=== PATIENT | male | born 1950 | race Caucasian/White ===

== ENCOUNTER 2023-05-04 07:04 | Day surgery (SDC) | payer OTHER, SELFPAY ==
--- NOTE | 2023-05-04 07:11 | HP.PCM_ITS ---
History and Physical Date of Admission: 05/04/23 Allergies shellfish derived Allergy (Intermediate, Verified 04/24/23 09:50) Rashtiotropium [From Spiriva with HandiHaler] Allergy (Intermediate, Verified 04/24/23 09:50) RashIodinated Contrast Media Allergy (Verified 04/24/23 09:50) RashSulfa (Sulfonamide Antibiotics) Allergy (Verified 04/24/23 09:50) Rashatorvastatin [From Lipitor] Adverse Reaction (Verified 04/24/23 09:50) Othercarvedilol Adverse Reaction (Verified 04/24/23 09:50) Othercerivastatin [From Baycol] Adverse Reaction (Verified 04/24/23 09:50) Other Medications albuterol sulfate 90 mcg/actuation breath activated powder inhaler 2 inh inhalation Q6H PRN 09/25/22 [History Confirmed 04/24/23] apixaban 5 mg tablet 5 mg PO BID 09/25/22 [History Confirmed 04/24/23] arformoterol 15 mcg/2 mL solution for nebulization 2 ml inhalation BID 09/25/22 [History Confirmed 04/24/23] ascorbic acid (vitamin C) 250 mg tablet 250 mg PO DAILY 09/25/22 [History Confirmed 04/24/23] budesonide 0.5 mg/2 mL suspension for nebulization 0.25 mg inhalation BID 09/25/22 [History Confirmed 04/24/23] bupropion HCl 150 mg tablet,12 hr sustained-release 150 mg PO BID 09/25/22 [History Confirmed 04/24/23] carboxymethylcellulose sodium 1 % eye drops (Artificial Tears (carboxymethylcellulose)) 1 drp ophthalmic (eye) TID 09/25/22 [History Confirmed 04/24/23] cetirizine 10 mg capsule (All Day Allergy (cetirizine)) 10 mg PO DAILY PRN 09/25/22 [History Confirmed 04/24/23] cholecalciferol (vitamin D3) 25 mcg (1,000 unit) capsule 75 mcg PO DAILY 09/25/22 [History Confirmed 09/25/22] clindamycin phosphate 1 % topical gel 1 applic topical BID 09/25/22 [History Confirmed 04/24/23] empagliflozin 25 mg tablet 25 mg PO DAILY 09/25/22 [History Confirmed 04/24/23] ferrous sulfate 325 mg (65 mg iron) tablet 325 mg PO BID 09/25/22 [History Confirmed 04/24/23] fluticasone propionate 50 mcg/actuation nasal spray,suspension 1 spray intranasal DAILY 09/25/22 [History Confirmed 04/24/23] guaifenesin 200 mg tablet 200 mg PO Q4H 09/25/22 [History Confirmed 04/24/23] melatonin 3 mg capsule 3 mg PO HS PRN 09/25/22 [History Confirmed 04/24/23] metoprolol succinate 25 mg tablet,extended release 24 hr 25 mg PO DAILY 09/25/22 [History Confirmed 04/24/23] multivitamin with minerals 1 cap PO DAILY 09/25/22 [History Confirmed 04/24/23] omeprazole 20 mg capsule,delayed release 20 mg PO BID 09/25/22 [History Confirmed 04/24/23] paroxetine HCl 10 mg tablet 10 mg PO DAILY 09/25/22 [History Confirmed 04/24/23] potassium chloride 20 mEq tablet,extended release 20 meq PO BID 09/25/22 [History Confirmed 04/24/23] rosuvastatin 20 mg tablet 20 mg PO DAILY 09/25/22 [History Confirmed 04/24/23] tamsulosin 0.4 mg capsule 0.4 mg PO DAILY 09/25/22 [History Confirmed 04/24/23] tazarotene 0.1 % topical cream 1 applic topical DAILY 09/25/22 [History Confirmed 04/24/23] torsemide 20 mg tablet 20 mg PO QAM 09/25/22 [History Confirmed 04/24/23] aspirin 81 mg tablet,delayed release 81 mg PO DAILY 04/24/23 [History Confirmed 04/24/23] budesonide 160 mcg-glycopyr 9 mcg-formot 4.8 mcg/actuation HFA inhaler (Breztri Aerosphere) 2 inh inhalation BID 04/24/23 [History Confirmed 04/24/23] [facility] Medical History (Updated 04/24/23 @ 13:45 by Tamra OROZCO, PA-C) Afib Carpal tunnel syndrome Cervical spondylosis CHF (congestive heart failure) CKD (chronic kidney disease) stage 3, GFR 30-59 ml/min COPD (chronic obstructive pulmonary disease) Coronary atherosclerosis CVA (cerebral vascular accident) Diabetes mellitus Diverticulosis HTN (hypertension) Hyperlipidemia Lymphedema VIKAS (obstructive sleep apnea) PTSD (post-traumatic stress disorder) Surgical History (Updated 04/24/23 @ 09:49 by Ashlyn Bhandari) History of cardioversion S/P triple vessel bypass Family History (Updated 04/24/23 @ 09:49 by Ashlyn Bhandari) Mother CAD (coronary artery disease) HypertensionFather Heart disease Social History (Updated 04/24/23 @ 09:48 by Ashlyn Bhandari) Smoking Status: Former smoker alcohol intake: never HPI HPI Surgical H&P: Yes HPI: Patient is a 72 y/o M I am seeing for an upper and lower scope for personal history of colon polyps and GERD. Patient denies any recent hospitalizations or illnesses. He notes being evaluated by a erp consultant at the [place] for A fib. Patient was cardioverted successfully in October. He was placed on Eliquis. Patient has been provided instructions to hold his blood thinner from the pharmacist at the [place]. Patient denies any change in bowel habits, rectal bleeding and abdominal pain. Patient denies any side effects or complications from anesthesia. Patient's previous history per Dr. Minor: 72-year-old gentleman is being referred by the [facility] system for surgical consultation regarding chronic iron deficiency anemia and the need for combined upper and lower endoscopy.A written copy of my surgical consult will return to the [facility] system. It is of note that among the other medications that the patient is on he is on apixaban. He is on iron replacement currently. He does take omeprazole 20 mg daily. There is a gastroenterology consultation within the [place] system noting that the patient has been iron deficient May 2021. Last colonoscopy was August 2017. As of June 07, 2022 white blood cell count was 6.5 with a hemoglobin 12.7 and hematocrit of 30.5 with a platelet count of 194,000. BUN is 18 and creatinine 120. Iron level was 32 with a TIBC of 377 and a ferritin of 18.4. The patient is also to receive hematology follow-up as well. It was proposed per gastroenterology that the patient have combined esophagogastroduodenoscopy and colonoscopy. Medical comorbidities include severe COPD Gold stage D. Has heart failure and obstructive sleep apnea and atrial fibrillation and hypertension and gastroesophageal reflux disease in addition to hyperlipidemia and diabetes. Report suggest that the patient had a combined upper and lower endoscopy November 2009 and then and additionally had a colonoscopy 2012 identifying a hyperplastic polyp polyp with follow-up in 10 years recommended. 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 I do not have a copy of his pathology. As of September 14, 2022 white blood cell count was 5 with a hemoglobin 11.4 h ematocrit 33.3 platelet count of 208,000 with a BUN of 21 and a creatinine of 1.3 and a GFR of 58 States that he was hospitalized at [facility] March 2022 for exacerbation of COPD and he was there for several days. He then was sent to outpatient rehab and feels like he is making progress. He has had a 25 pound weight loss. He uses CPAP at night. He does require oxygen with that and intermittently has portable oxygen to be used as needed. He is not on chronic oxygen. He feels that currently he is in a stable situation in regards to his respirations. ROS General General: Yes weight change and fatigue; No appetite, colon cancer, breast cancer or weakness HEENT HEENT: Yes difficulty swallowing, eye injury and eye surgery; No swollen glands or hoarseness Endo Endocrine: Yes diabetes mellitus; No thyroid disease, thyroid cancer, Hair loss, heat intolerance or cold intolerance Skin Skin: Yes changing moles; No rash Breast Breast: No left breast lump, right breast lump, nipple discharge, breast pain, abnormal mammogram, abnormal US or breast enlargement Musc Musculoskeletal: No back problems, arthritis, rheumatoid arthritis, gout or joint pain Cardio Cardiovascular: Yes heart disease, atrial fibrillation, heart attack, heart stent and shortness of breat with exertion; No murmur, pacemaker, high blood pressure, palpitations or chest pain Psych Psychiatric: Yes depression and anxiety; No hearing voices Resp Respiratory: Yes shortness of breath, Yes sleep apnea, No cough, Yes COPD, No asthma, No emphysema and No wheezing Gastro Gastrointestinal: No abdominal pain, No nausea or vomiting, No diarrhea, No constipation, No blood in stool, Yes acid reflux, No hemorrhoids, No ulcers, No gallbladder problem and No black,tarry stools Abelino Hematologic: Yes blood thinners, No blood disorders, Yes bleeding, No anemia and Yes blood clots Neuro Neurologic: No system reviewed and no additional complaints, except as documented, No as per HPI, No abnormal gait, No abnormal hearing, No abnormal movements, No abnormal speech, No behavioral changes, No burning sensations, No confusion, No convulsions, No disequilibrium, No dizziness, No localized weakness, No frequent falls, No headache(s), No lack of coordination, No loss of vision, No memory loss, Yes numbness, No other visual disturbances, No radicular pain, No restless legs, No sensory deficit, No syncope, Yes tingling, No tremor(s), No weakness and Yes other (TIA 2018) Exam Const General: cooperative, healthy appearing, comfortable and no acute distress HENMI Head: normal to inspection Eyes General: appearance normal, both eyes and all related structures Neck Neck: normal visual inspection Neck mass: No Chest Chest palpation & inspection: normal inspection of the chest Resp Effort & Inspection: normal respiratory effort Auscultation: clear to auscultation bilaterally Cardio Rate: regular rate Rhythm: regular rhythm GI Inspection: normal to inspection Palpation: soft Auscultation: normal bowel sounds Musc Cervical Spine: normal cervical lordosis Skin General: no rashes or lesions noted Neuro General: no focal motor deficits and CN's II-XI intact bilaterally Extrem General: normal to inspection Psych Appearance: grossly normal Affect: normal affect Assessment and Plan Assessment and Plan (1) GERD (gastroesophageal reflux disease): Status: Acute Qualifiers: Esophagitis presence: esophagitis presence not specified Qualified Code(s): K21.9 - Gastro-esophageal reflux disease without esophagitis (2) Personal history of colonic polyps: Status: Acute Plan Dr. Minor will plan to perform an esophagogastroduodenoscopy with possible biopsy and colonoscopy with possible biopsy or polypectomy. Procedure details, risks and benefits have been explained to the patient. [facility] pharmacy has recommended the patient hold his Eliquis the day prior to the procedure, the day of the procedure and the day after the procedure. Patient will hold his aspirin 5 days prior to the procedure. Patient and his have had the opportunity to ask and have questions answered. Patient verbally understands and agrees with the plan I have examined the patient and the H&P has been reviewed. There are no clinical changes since date of exam. Alvaro Minor M.D., F.A.C.S.
[2023-05-04 07:24] VITALS: BP 135/65; PULSE 86; RESP 18; TEMP 36.9; O2SAT 91; BMI 42.1
[2023-05-04] MEDS: Lactated Ringers 1,000 ML 15 ML IV (07:26)
[2023-05-04 07:45] LABS: Bedside Glucose 103 mg/dL (74-106)
--- NOTE | 2023-05-04 08:30 | IMM_PTH ---
PATIENT: QUENTIN MAHONEY LOC: EN U#:[id number] AGE/SX: 72/M ROOM: RE05/04/[address]: Dr. Alvaro Minor MD : 1950 BED: DIS: 05/04/2023 SPEC #: [id number] RECD: 05/04/23 13:46 STATUS: CHARLETTE MILLY #: [id number] SHANON: 05/04/23 08:[address]: Alvaro Minor DEPT: IMMUNOHISTOCHEMISTRY RECD BY: Toyin Wyman ENTERED: 05/04/23 13:46 SP TYPE: IMMUNO OT DR: [facility] Tissues: A - Stomach, NOS C - Esophageal mucous membrane Procedures: H Pylori (initial) P53 (initial) KI-67 (add) PHYSICIAN & INSTITUTION [place] [id number] SPECIMEN INFORMATION: Tissue Source: A - Antrum, C - Distal esophagus Clinical Info: GERD, colon polyp history Specimen Number: [id number] A & C CPT code: 27513 x2, 99245 METHODOLOGY: Deparaffinized sections of prefer/formalin-fixed tissue or PAP/DQ stained slides are incubated with monoclonal/polyclonal antibodies/oligonucleotide probes. Localization is made via biotin free immunoperoxidase method. Appropriate controls are performed and reacted as expected. Results on target cell population are indicated in the following table: RESULTS: ANTIBODY / CLONE RESULT Block A H Pylori (polyclonal) negative Block C P53 (DO-7) positive, wild type pattern Ki-67 (30-9) positive, low These tests were developed and their performance characteristics determined by [facility]. They may not have been cleared or approved by the U.S. Food and Drug Administration. The FDA has determined that such clearance or approval is not necessary. The above immunohistochemical/dualISH markers are ordered and reviewed by the Pathologist. INTERPRETATION: A. Antrum, biopsy: Negative for H pylori. C. Distal esophagus, biopsy: No evidence of dysplasia. AM:jaskaran 05/09/2023
--- NOTE | 2023-05-04 08:30 | EGD_PTH ---
PATIENT: QUENTIN MAHONEY LOC: EN U#:[id number] AGE/SX: 72/M ROOM: RE05/04/[address]: Dr. Alvaro Minor MD : 1950 BED: DIS: 05/04/2023 SPEC #: [id number] RECD: 05/04/23 11:06 STATUS: CHARLETTE MILLY #: [id number] SHANON: 05/04/23 08:[address]: Alvaro Minor DEPT: SURGICAL PATHOLOGY RECD BY: Vashti Schreiber ENTERED: 05/04/23 11:50 SP TYPE: EGD BIOPSY OTHR DR: [facility] Tissues: A - Gastric mucous membrane B - Stomach, NOS C - Esophagus, NOS D - Cecum, NOS Procedures: Special Stain Group II Surgery Specimen Level IV Alcian Blue/PAS (control) HEADER OPERATION: Colonoscopy with polypectomy and clip application to cecum PRE-OP DIAGNOSIS: GERD, colonic polyp history TISSUE SUBMITTED: A - Antrum for H. pylori and path, B - Greater curvature polyp, C - Distal esophagus, D - Cecum polyp MICROSCOPIC DIAGNOSIS A. Gastric antrum, biopsy: Mild chronic inflammation. See comment. B. Greater curvature polyp, biopsy: Fundic gland polyp. C. Distal esophagus, biopsy: Gastroesophageal junctional mucosa with mild chronic inflammation. Focal goblet cell metaplasia consistent with Rodas's epithelium. No evidence of dysplasia. See comment. D. Cecal polyp, biopsy: Tubular adenoma. AM:jaskaran 05/08/2023 COMMENT A. The results of immunohistochemistry for Helicobacter pylori will be reported separately ([id number]). C. Immunohistochemistry ([id number]) for P53 and Ki-67 will be performed and results will be reported separately. Alcian blue/PAS stain with matched control supports the above diagnosis. MICROSCOPIC DESCRIPTION Slides are reviewed. GROSS DESCRIPTION A - Received in fixative is one container labeled with the patient's name and designated antrum biopsy. The specimen consists of one irregular fragment of light conde soft tissue that measures 0.5 x 0.5 x 0.1 cm. The specimen is totally submitted in one cassette. B - Received in fixative is one container labeled with the patient's name and designated greater curvature stomach. The specimen consists of one irregular fragment of light conde soft tissue that measures 0.5 x 0.5 x 0.1 cm. The specimen is totally submitted in one cassette. C - Received in fixative is one container labeled with the patient's name and designated distal esophagus. The specimen consists of multiple irregular fragments of light conde soft tissue that in aggregate measure 1.5 x 0.5 x 0.1 cm. The specimen is totally submitted in one cassette. D - Received in fixative is one container labeled with the patient's name and designated cecal polyp. The specimen consists of one irregular fragment of light conde soft tissue that measures 0.8 x 0.6 x 0.2 cm. The specimen is totally submitted in one cassette. / AM:jaskaran 05/04/2023 TC:3 CPT: 94816 x4, 90829
[2023-05-04 09:00] VITALS: BP 109/79; BP 135/65; PULSE 79; PULSE 89; RESP 16; TEMP 36.6; O2SAT 92
--- NOTE | 2023-05-04 09:00 | OP.CCLET_ITS ---
05/04/2023 [facility] Re : Upper GI endoscopy procedure for [facility] This procedure was performed on Thursday, May 04, 2023. My impressions and recommendations are as follows: Impressions : - Esophageal mucosal changes suspicious for short-segment Rodas's esophagus. Biopsied. - Z-line irregular, 45 cm from the incisors. - Small hiatal hernia. - Erythematous mucosa in the antrum. Biopsied. - Normal examined duodenum. - Multiple gastric polyps. Resected and retrieved. Recommendations : - Telephone my office for pathology results in 1 week. - Repeat upper endoscopy in 3 years for surveillance. - Continue present medications. My findings are described in the full procedure note, which is enclosed. If I can be of further assistance, please feel free to contact me at Doctor phone number(s): Work: . Sincerely, Alvaro Minor MD 05/04/2023 8:59:40 AM This report has been signed electronically.
--- NOTE | 2023-05-04 09:00 | OP.EGD_ITS ---
Patient Name: Jersey Jay Procedure Date: 05/04/2023 8:12 AM Date of : 1950 Age: 72 Procedure: Upper GI endoscopy Indications: Gastro-esophageal reflux disease Providers: Alvaro Minor MD Referring MD: [facility] Complications: No immediate complications. Procedure: Pre-Anesthesia Assessment: - Prior to the procedure, a History and Physical was performed, and patient medications and allergies were reviewed. The patient's tolerance of previous anesthesia was also reviewed. The risks and benefits of the procedure and the sedation options and risks were discussed with the patient. All questions were answered, and informed consent was obtained. Prior Anticoagulants: The patient has taken Eliquis (apixaban), last dose was 2 days prior to procedure. ASA Grade Assessment: III - A patient with severe systemic disease. After reviewing the risks and benefits, the patient was deemed in satisfactory condition to undergo the procedure. After obtaining informed consent, the endoscope was passed under direct vision. Throughout the procedure, the patient's blood pressure, pulse, and oxygen saturations were monitored continuously. The gastroscope was introduced through the mouth, and advanced to the second part of duodenum. The upper GI endoscopy was accomplished without difficulty. The patient tolerated the procedure well. Scope In: 8:19:32 AM Scope Out: 8:26:52 AM Total Procedure Duration Time 0 hours 7 minutes 20 seconds Findings: There were esophageal mucosal changes suspicious for short-segment Rodas's esophagus present at the gastroesophageal junction. The maximum longitudinal extent of these mucosal changes was 1 cm in length. Mucosa was biopsied with a cold forceps for histology. The Z-line was irregular and was found 45 cm from the incisors. A small hiatal hernia was present. Diffuse mildly erythematous mucosa without bleeding was found in the gastric antrum. Biopsies were taken with a cold forceps for histology. The examined duodenum was normal. Multiple sessile polyps with no bleeding and no stigmata of recent bleeding were found on the greater curvature of the stomach. The polyp was removed with a cold biopsy forceps. Resection and retrieval were complete. Impression: - Esophageal mucosal changes suspicious for short-segment Rodas's esophagus. Biopsied. - Z-line irregular, 45 cm from the incisors. - Small hiatal hernia. - Erythematous mucosa in the antrum. Biopsied. - Normal examined duodenum. - Multiple gastric polyps. Resected and retrieved. Recommendation: - Telephone my office for pathology results in 1 week. - Repeat upper endoscopy in 3 years for surveillance. - Continue present medications. Procedure Code(s): --- Professional --- 85267, Esophagogastroduodenoscopy, flexible, transoral; with biopsy, single or multiple Diagnosis Code(s): --- Professional --- K22.89, Other specified disease of esophagus K44.9, Diaphragmatic hernia without obstruction or gangrene K31.89, Other diseases of stomach and duodenum K31.7, Polyp of stomach and duodenum K21.9, Gastro-esophageal reflux disease without esophagitis CPT copyright 2021 [employer]. All rights reserved. The codes documented in this report are preliminary and upon management development specialist review may be revised to meet current compliance requirements. Alvaro Minor MD 05/04/2023 8:59:40 AM This report has been signed electronically. Number of Addenda: 0 Note Initiated On: 05/04/2023 8:12 AM
--- NOTE | 2023-05-04 09:03 | OP.COLON_ITS ---
Patient Name: Jersey Jay Procedure Date: 05/04/2023 8:29 AM Date of : 1950 Age: 72 Procedure: Colonoscopy Indications: High risk colon cancer surveillance: Personal history of colonic polyps Providers: Alvaro Minor MD Referring MD: [facility] Medicines: See the Anesthesia note for documentation of the administered medications Patient Profile: Last Colonoscopy: August 2017. Complications: No immediate complications. Procedure: Pre-Anesthesia Assessment: - Prior to the procedure, a History and Physical was performed, and patient medications and allergies were reviewed. The patient's tolerance of previous anesthesia was also reviewed. The risks and benefits of the procedure and the sedation options and risks were discussed with the patient. All questions were answered, and informed consent was obtained. Prior Anticoagulants: The patient has taken Eliquis (apixaban), last dose was 2 days prior to procedure. ASA Grade Assessment: III - A patient with severe systemic disease. After reviewing the risks and benefits, the patient was deemed in satisfactory condition to undergo the procedure. After I obtained informed consent, the scope was passed under direct vision. Throughout the procedure, the patient's blood pressure, pulse, and oxygen saturations were monitored continuously. The colonoscope was introduced through the anus and advanced to the cecum, identified by appendiceal orifice and ileocecal valve. The colonoscopy was somewhat difficult due to the patient's body habitus. The patient tolerated the procedure well. The quality of the bowel preparation was fair. The ileocecal valve was photographed. Scope In: 8:30:22 AM Scope Withdrawal Time 0 hours 9 minutes 28 seconds Scope Out: 8:52:18 AM Total Procedure Duration Time 0 hours 21 minutes 56 seconds Findings: The digital rectal exam findings include non-thrombosed external hemorrhoids, non-thrombosed internal hemorrhoids, internal hemorrhoids that prolapse with straining, but spontaneously regress to the resting position (Grade II) and enlarged prostate. An 11 mm polyp was found in the cecum. The polyp was sessile. The polyp was removed with a saline injection-lift technique using a cold snare. Resection and retrieval were complete. To prevent bleeding post-intervention, two hemostatic clips were successfully placed. There was no bleeding at the end of the procedure. A few diverticula were found in the sigmoid colon. Impression: - Preparation of the colon was fair. - Non-thrombosed external hemorrhoids, non-thrombosed internal hemorrhoids, internal hemorrhoids that prolapse with straining, but spontaneously regress to the resting position (Grade II) and enlarged prostate found on digital rectal exam. - One 11 mm polyp in the cecum, removed using injection-lift and a cold snare. Resected and retrieved. Clips were placed. - Diverticulosis in the sigmoid colon. Recommendation: - Discharge patient to home. - Resume previous diet. - Continue present medications. - Repeat colonoscopy in 5 years for surveillance based on pathology results. - Telephone my office for pathology results in 1 week. Procedure Code(s): --- Professional --- 00640, Colonoscopy, flexible; with removal of tumor(s), polyp(s), or other lesion(s) by snare technique 95228, Colonoscopy, flexible; with directed submucosal injection(s), any substance Diagnosis Code(s): --- Professional --- Z86.010, Personal history of colonic polyps K64.1, Second degree hemorrhoids K64.4, Residual hemorrhoidal skin tags D12.0, Benign neoplasm of cecum K57.30, Diverticulosis of large intestine without perforation or abscess without bleeding N40.0, Benign prostatic hyperplasia without lower urinary tract symptoms CPT copyright 2021 [employer]. All rights reserved. The codes documented in this report are preliminary and upon property custodian review may be revised to meet current compliance requirements. Alvaro Minor MD 05/04/2023 9:03:04 AM This report has been signed electronically. Number of Addenda: 0 Note Initiated On: 05/04/2023 8:29 AM
--- NOTE | 2023-05-04 09:03 | OP.CCLET_ITS ---
05/04/2023 [facility] Re : Colonoscopy procedure for [facility] This procedure was performed on Thursday, May 04, 2023. My impressions and recommendations are as follows: Impressions : - Preparation of the colon was fair. - Non-thrombosed external hemorrhoids, non-thrombosed internal hemorrhoids, internal hemorrhoids that prolapse with straining, but spontaneously regress to the resting position (Grade II) and enlarged prostate found on digital rectal exam. - One 11 mm polyp in the cecum, removed using injection-lift and a cold snare. Resected and retrieved. Clips were placed. - Diverticulosis in the sigmoid colon. Recommendations : - Discharge patient to home. - Resume previous diet. - Continue present medications. - Repeat colonoscopy in 5 years for surveillance based on pathology results. - Telephone my office for pathology results in 1 week. My findings are described in the full procedure note, which is enclosed. If I can be of further assistance, please feel free to contact me at Doctor phone number(s): Work: . Sincerely, Alvaro Minor MD 05/04/2023 9:03:04 AM This report has been signed electronically.
[2023-05-04 09:09] VITALS: BP 131/75; BP 135/65; PULSE 73; RESP 16; TEMP 36.3; O2SAT 93
[2023-05-04 09:25] VITALS: BP 135/65
== END 2023-05-04 09:42 | disposition home or self-care (01) ==
LOC: EN 07:06 → AC 07:07
PROVIDERS: Visit Provider Surgery
PROC: 0DJD8ZZ Inspection of Lower Intestinal Tract, Via Natural or Artificial Opening Endoscopic (ICD-10-PCS; CPT 45378; principal; 2023-05-04 08:25)
DX: Z12.11 Encounter for screening for malignant neoplasm of colon (principal); J44.9 Chronic obstructive pulmonary disease, unspecified; I50.9 Heart failure, unspecified; I13.0 Hypertensive heart and chronic kidney disease with heart failure and stage 1 through stage 4 chronic kidney disease, or unspecified chronic kidney disease; E11.22 Type 2 diabetes mellitus with diabetic chronic kidney disease; I48.91 Unspecified atrial fibrillation; N18.30 Chronic kidney disease, stage 3 unspecified; D12.0 Benign neoplasm of cecum; K31.7 Polyp of stomach and duodenum; K64.4 Residual hemorrhoidal skin tags; E78.5 Hyperlipidemia, unspecified; I25.10 Atherosclerotic heart disease of native coronary artery without angina pectoris; D50.9 Iron deficiency anemia, unspecified; K44.9 Diaphragmatic hernia without obstruction or gangrene; K57.30 Diverticulosis of large intestine without perforation or abscess without bleeding; G47.33 Obstructive sleep apnea (adult) (pediatric); K22.70 Barrett's esophagus without dysplasia; K64.1 Second degree hemorrhoids; N40.0 Benign prostatic hyperplasia without lower urinary tract symptoms; K21.9 Gastro-esophageal reflux disease without esophagitis; F43.10 Post-traumatic stress disorder, unspecified; F32.9 Major depressive disorder, single episode, unspecified; K31.89 Other diseases of stomach and duodenum; Z79.84 Long term (current) use of oral hypoglycemic drugs; Z79.82 Long term (current) use of aspirin; Z79.899 Other long term (current) drug therapy; Z86.73 Personal history of transient ischemic attack (TIA), and cerebral infarction without residual deficits; Z87.891 Personal history of nicotine dependence; Z86.010 Personal history of colon polyps; Z99.81 Dependence on supplemental oxygen
CPT/HCPCS: 45385; 45381; 43239; 82962; 88305; 88313; 88341; 88342; J7120; A4216; J2405